=== PATIENT | female | born 1965 | race Caucasian/White ===

== ENCOUNTER 2017-05-09 17:08 | Emergency (ER) | payer OTHER ==
[~2017-05-09] VITALS: Ht 175.3 cm; Wt 76.7 kg
[2017-05-09] MEDS ORDERED: IBUPROFEN 600 MG TABLET. PO ONE (18:00)
[2017-05-09] MEDS ORDERED: HYDR-2758 PO (18:02)
[2017-05-09] MEDS ORDERED: IBUP200T44 PO (18:02)
--- NOTE | 2017-05-09 18:02 | PHYS DOC ---
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 She was playing with some children at home and she was actually tripped by one of them causing a valgus stress on the knee she felt a pop and felt a lateral movement of the patella 2+ at the right heart pop back in place. Since that time she's had lower left leg and knee swelling with some tenderness to the lateral aspect of the leg decreased range of motion secondary to pain. She has chronic sciatica on that side and chronic numbness and tingling in nothing new today. No prior injuries to this knee or ankle in the past. The hip does not hurt her toes do not hurt at all within the knee. She ambulated under her own power and drove herself here to the ER pain is present. At 10 of 10 but because she broke herself she is willing not to take narcotics at the time offered ibuprofen on arrival Review of Systems Review of Systems Musculoskeletal: Negative for chronic lower back pain positive for left knee pain Integument: Denies rash or skin lesions [] Neurologic: Denies headache, focal weakness or patient does have some chronic tingling to the left and right lower legs chronically from her sciatica nothing new] All other systems were reviewed and found to be within normal limits, except as documented in this note. Allergies Allergies Allergies Coded Allergies Type Severity Reaction Last Updated Verified No Known Drug Allergies 05/09/17 No Physical Exam Physical Exam Vital signs recorded on the chart within normal limits with exception of blood pressure not noted Constitutional: Well developed, well nourished, no acute distress, non-toxic appearance. [] Cardiovascular:Heart rate regular rhythm, no murmur [] Lungs & Thorax: Bilateral breath sounds clear to auscultation [] Skin: Warm, dry, no erythema, no rash. [] Extremities: Hip has full range of motion with no lateral tenderness to palpation. There is no tenderness to palpation of the inguinal crease on the left. Patient has marked tenderness to palpation of lateral aspect of the left knee with some soft tissue swelling. There is some laxity on valgus stress. Patient has an anterior posterior draw test is negative, negative Emil's. Patient has some effusion noted in the joint Neurologic: Alert and oriented X 3, normal motor function, normal sensory function, no focal deficits noted. [] Psychologic: Affect normal, judgement normal, mood normal. [] Current Patient Data Vital Signs Vital Signs Date Time Temp Pulse Resp B/P (MAP) Pulse Ox O2 Delivery O2 Flow Rate FiO2 05/09/17 17:21 98.1 82 18 98 Room Air EKG EKG [] Radiology/Procedures Radiology/Procedures [] Course & Med Decision Making Course & Med Decision Making Pertinent Labs and Imaging studies reviewed. (See chart for details) []Review films of the knee on the left demonstrated no acute fracture, no significant hemarthrosis, there is a free floating body is well-demarcated in the posterior aspect of the knee that does not look new or acute. A stone history provided and the physicals exam findings patient is separate from his lateral collateral ligament injury this point because of soft tissue swelling and pain she has a limited exam. I will put her in a knee immobilizer, right her crutches and pain medications and have her follow-up with orthopedic surgery for more thorough evaluation when her knee swelling is improved. discharge: I've spoken with the patient and/or caregivers. I've explained the patient's condition, diagnosis and treatment plan based on information available to me at this time. I've answered the patient's and/or caregivers questions and addressed any concerns. The patient and/or caregivers have a good understanding the patient's diagnosis, condition and treatment plan as can be expected at this point. Vital signs have been stabilized. The patient's condition is stable for discharge from the emergency department. The patient will pursue further outpatient evaluation with her primary care provider or other designated consulting physician as outlined in the discharge instructions. Patient and/or caregivers are agreeable to this plan of care and follow-up instructions have been explained in detail. The patient and/or caregivers have received these instructions in written format and expressed understanding of these discharge instructions. The patient and her caregivers are aware that if any significant change in condition or worsening of symptoms should prompt him to immediately return to this of the closest emergency department. If an emergent department is not readily available I would encourage him to call 911. Kendy Disclaimer Kendy Disclaimer This electronic medical record was generated, in whole or in part, using a voice recognition dictation system. Departure Departure: Impression: Primary Impression: Internal derangement of left knee Additional Impressions: Lateral collateral ligament sprain of knee Knee pain Disposition: HOME, SELF-CARE Condition: STABLE Referrals: PCP,NO (PCP) Patient Instructions: Combined Knee Ligament Sprain-SportsMed, Knee Effusion, Knee Immobilization, Knee Sprain Additional Instructions: discharge: I've spoken with the patient and/or caregivers. I've explained the patient's condition, diagnosis and treatment plan based on information available to me at this time. I've answered the patient's and/or caregivers questions and addressed any concerns. The patient and/or caregivers have a good understanding the patient's diagnosis, condition and treatment plan as can be expected at this point. Vital signs have been stabilized. The patient's condition is stable for discharge from the emergency department. The patient will pursue further outpatient evaluation with her primary care provider or other designated consulting physician as outlined in the discharge instructions. Patient and/or caregivers are agreeable to this plan of care and follow-up instructions have been explained in detail. The patient and/or caregivers have received these instructions in written format and expressed understanding of these discharge instructions. The patient and her caregivers are aware that if any significant change in condition or worsening of symptoms should prompt him to immediately return to this of the closest emergency department. If an emergent department is not readily available I would encourage him to call 911. Patient is advised that in the Emergency Department primary complaints are addressed and only in light of known signs and symptoms. Patient should return immediately to the emergency department if new signs and symptoms develop or patient's condition worsens in any way. At time of discharge patient was in stable condition and had verbalized understanding of the discharge instructions. Although there is no acute fracture noted on x-ray today this does not mean subtle fractures are not missed on initial presentation. If your symptoms are not improved within 1 week or if symptoms worsen despite oral treatment with pain medications I would advise follow-up with your primary care doctor to have a repeat set of x-rays completed to ensure no subtle fractures were missed. Please understand that sometimes x-rays are missed red and if there is a misreading of your x-rays she will be contacted by the emergency room physician to talk about appropriate treatment. Scripts Hydrocodone Bit/Acetaminophen (HYDROCODONE-APAP 5-325 ) 1 Each Tablet 1 TAB PO PRN Q6HRS Y for PAIN for 5 Days, #10 TAB 0 Refills Prov: PATIENCE ASTUDILLO MD 05/09/17 Ibuprofen (MOTRIN IB) 200 Mg Tablet 400 MG PO QID for 7 Days, #56 TAB Prov: PATIENCE ASTUDILLO MD 05/09/17 Problem Qualifiers PATIENCE ASTUDILLO MD May 09, 2017 18:02
[2017-05-09 18:07] VITALS: BP 135/90
--- NOTE | 2017-05-10 08:25 | RAD ---
3 views left knee 05/09/2017 Clinical indication: Left knee pain status post injury. Fall. Comparison: None. Findings: No acute fracture or traumatic malalignment. Tricompartment degenerative changes greatest to a moderate degree at the lateral joint compartment with joint space narrowing and osteophytosis. Mild to moderate medial joint space narrowing and osteophytosis. There are patellofemoral osteophytes. There is a moderate suprapatellar joint effusion. Impression: 1. No acute osseous abnormality. 2. Tricompartment degenerative changes, greatest to a moderate degree, laterally. 3. Moderate joint effusion. Findings may represent internal derangement. Nonemergent MRI knee could be obtained for further evaluation, if clinically indicated.
== END 2017-05-09 18:10 | disposition home or self-care (01) ==
LOC: ER 17:08
DX: M23.92 Unspecified internal derangement of left knee (principal); J44.9 Chronic obstructive pulmonary disease, unspecified; F20.9 Schizophrenia, unspecified; F17.210 Nicotine dependence, cigarettes, uncomplicated; F41.9 Anxiety disorder, unspecified; F32.9 Major depressive disorder, single episode, unspecified; X50.9XXA Other and unspecified overexertion or strenuous movements or postures, initial encounter; Y93.89 Activity, other specified; Y99.8 Other external cause status; Y92.098 Other place in other non-institutional residence as the place of occurrence of the external cause
CPT/HCPCS: 29505; 73562; 99284